=== PATIENT | female | born 1970 | race Asian ===

== ENCOUNTER 2020-02-24 19:49 | Emergency (ER) | payer BC, OTHER ==
[2020-02-24 20:21] LABS: BASOPHILS % (AUTO) 0.5 %; EOSINOPHILS # (AUTO) 0.3 10^3/uL (0.0-0.7); EOSINOPHILS % (AUTO) 3.9 %; HGB - HEMOGLOBIN 13.1 g/dL (12.0-16.0); LYMPHOCYTES # (AUTO) 2.9 10^3/uL (1.5-3.5); LYMPHOCYTES % (AUTO) 35.3 %; MEAN CORPUSCULAR HGB CONC 33.5 g/dL (32.0-36.0); MEAN CORPUSCULAR VOLUME 89.7 fL (81.0-99.0); MEAN PLATELET VOLUME 9.6 fL (7.9-10.8); MONOCYTES # (AUTO) 0.6 10^3/uL (0.0-1.0); MONOCYTES % (AUTO) 7.4 %; NEUTROPHILS # (AUTO) 4.3 10^3/uL (1.5-6.6); NEUTROPHILS % (AUTO) 52.5 %; PLT - PLATELET COUNT 254 10^3/uL (130-450); RED BLOOD COUNT 4.36 10^6/uL (4.20-5.40); RED CELL DISTRIBUTION WIDTH 12.8 % (12.0-15.0); WHITE BLOOD COUNT 8.2 x10^3/uL (4.8-10.8)
[2020-02-24 20:34] LABS: ALBUMIN 4.4 g/dL (3.2-5.5); ALBUMIN/GLOBULIN RATIO 1.3 (1.0-2.2); BILIRUBIN,TOTAL 0.6 mg/dL (0.2-1.0); CALCIUM 9.4 mg/dL (8.5-10.3); CREATININE 0.6 mg/dL (0.4-1.0); TOTAL PROTEIN 7.9 g/dL (6.7-8.2)
--- NOTE | 2020-02-24 20:45 | XRAY Report ---
PROCEDURE: Chest 1 View X-Ray INDICATIONS: Chest pain TECHNIQUE: One view of the chest was acquired. COMPARISON: None FINDINGS: Surgical changes and devices: None. Lungs and pleura: No pleural effusions or pneumothorax. Lungs demonstrate coarse interstitial luisa ngs and mild hyperinflation. Mediastinum: Mediastinal contours appear normal. Heart size is normal. Bones and chest wall: No suspicious bony lesions. Overlying soft tissues appear unremarkable. IMPRESSION: Mild emphysema or asthma. Reviewed by: Hazel Guzman MD on 02/24/2020 8:44 PM PDT Approved by: Hazel Guzman MD on 02/24/2020 8:44 PM PDT Station ID: [id number]
--- NOTE | 2020-02-24 21:26 | ED Physician Documentation ---
PD HPI CHEST PAIN - Stated complaint Stated Complaint: CP LT SIDE - Chief complaint Chief Complaint: Cardiac - History obtained from History obtained from: Patient, Family - History of Present Illness Timing - onset: Enter time (1300), Today Timing - onset during: Light activity Timing - duration: Hours Timing - details: Abrupt onset, Still present Pain level max: 5 Pain level now: 5 Quality: Aching Location: Left chest Radiation: Left upper extremity Improved by: Other medication (ibuprofen) Worsened by: No: Exertion, Inspiration, Eating, Movement, Palpation, Position Associated symptoms: No: Shortness of air, Diaphoresis, Nausea, Vomiting, Feeling faint / dizzy, General Weakness, Palpitations, Cough Similar symptoms before: No diagnosis Recently seen: Not recently seen - Additional information Additional information: 49-year-old female letter to [employer] today when she developed some pain in the left chest that radiated down into her left arm. She states the pain is about a 5 out of 10 at its maximum and she does not have other symptoms she does not have diaphoresis she denies dyspnea she does not feel lightheaded or dizzy. She denies any modifying factors for the pain. She states that she has not noted any exertional component to this and she is unable to get this to be worse with deep breaths or palpation of the chest wall. She starts states this started about 1:00 in the afternoon and has persisted. She has had a similar incident about 2-1/2 weeks ago that lasted about 2 days. This resolved she has not had symptoms in between. She denies any family history of coronary disease. She lamas s have a family history of diabetes and hypertension.She has never had an issue with hypertension Review of Systems Constitutional: denies: Fever Eyes: denies: Decreased vision Ears: denies: Ear pain Nose: denies: Congestion Throat: denies: Sore throat Cardiac: reports: Chest pain / pressure. denies: Palpitations, Pedal edema, Calf pain Respiratory: denies: Dyspnea, Cough, Hemoptysis, Wheezing GI: denies: Abdominal Pain, Nausea, Vomiting, Constipation, Diarrhea : denies: Dysuria, Frequency Skin: denies: Rash Musculoskeletal: denies: Neck pain, Back pain, Extremity pain Neurologic: denies: Generalized weakness, Focal weakness, Numbness PD PAST MEDICAL HISTORY - Past Medical History Past Medical History: No - Past Surgical History Past Surgical History: No - Allergies Allergies/Adverse Reactions: Allergies Allergy/AdvReac Type Severity Reaction Status Date / Time codeine AdvReac Itching Verified 02/24/20 19:52 - Social History Does the pt smoke?: No Smoking Status: Never smoker Does the pt drink ETOH?: Yes ETOH Use: Wine Does the pt have substance abuse?: No - Immunizations Immunizations are current?: Yes - POLST Patient has POLST: No PD ED PE NORMAL - Vitals Vital signs reviewed: Yes (Hypertensive) - General General: Alert and oriented X 3, No acute distress, Well developed/nourished - HEENT HEENT: Atraumatic, PERRL, EOMI - Neck Neck: Supple, no meningeal sign, No bony TTP - Cardiac Cardiac: RRR, No murmur - Respiratory Respiratory: No respiratory distress, Clear bilaterally, Other (No chest wall tenderness) - Abdomen Abdomen: Soft, Non tender - Back Back: No CVA TTP, No spinal TTP - Derm Derm: Normal color, Warm and dry, No rash - Extremities Extremities: No deformity, No edema, No calf tenderness / cord - Neuro Neuro: Alert and oriented X 3, exchange architect 2-12 intact, No motor deficit, No sensory deficit, Normal speech Eye Opening: Spontaneous Motor: Obeys Commands Verbal: Oriented GCS Score: 15 - Psych Psych: Normal mood, Normal affect Results - Vitals Vitals: Vital Signs - 24 hr 02/24/20 02/24/20 02/24/20 19:52 21:03 22:55 Temperature 36.6 C 36.6 C 37.0 C Heart Rate 82 75 67 Respiratory 14 16 12 Rate Blood Pressure 171/85 H 175/89 H 140/85 H O2 Saturation 100 100 100 Oxygen O2 Source Room air - EKG (time done) 1950 Rate: Rate (enter#) (75) Ischemia: Normal ST segments Compare to prior EKG: Old EKG unavailable Computer interpretation: Agree with computer - Labs Labs: Laboratory Tests 02/24/20 02/24/20 02/24/20 20:16 20:16 20:16 WBC 8.2 RBC 4.36 Hgb 13.1 Hct 39.1 MCV 89.7 MCH 30.0 MCHC 33.5 RDW 12.8 Plt Count 254 MPV 9.6 Neut # (Auto) 4.3 Lymph # (Auto) 2.9 [place] # (Auto) 0.6 Eos # (Auto) 0.3 Baso # (Auto) 0.0 Absolute Nucleated RBC 0.00 Nucleated RBC % 0.0 Sodium 141 Potassium 3.5 Chloride 103 Carbon Dioxide 27 Anion Gap 11.0 BUN 21 H Creatinine 0.6 Estimated GFR (MDRD) 105 Glucose 129 H Calcium 9.4 Total Bilirubin 0.6 AST 21 ALT 21 Alkaline Phosphatase 73 Troponin I High Sens < 2.3 L Total Protein 7.9 Albumin 4.4 Globulin 3.5 Albumin/Globulin Ratio 1.3 Lipase 38 02/24/20 21:59 WBC RBC Hgb Hct MCV MCH MCHC RDW Plt Count MPV Neut # (Auto) Lymph # (Auto) [place] # (Auto) Eos # (Auto) Baso # (Auto) Absolute Nucleated RBC Nucleated RBC % Sodium Potassium Chloride Carbon Dioxide Anion Gap BUN Creatinine Estimated GFR (MDRD) Glucose Calcium Total Bilirubin AST ALT Alkaline Phosphatase Troponin I High Sens < 2.3 L Total Protein Albumin Globulin Albumin/Globulin Ratio Lipase - Rads (name of study) chest Radiology: Prelim report reviewed (Impression: Mild emphysema or asthma.), EMP read indepedently, See rad report PD MEDICAL DECISION MAKING - ED course Complexity details: reviewed results, re-evaluated patient, considered differential, d/w patient, d/w family ED course: 49-year-old female with left-sided chest pain radiating to the arm has no modifying factors for her pain. She has a 5 out of 10 pain and she had a similar episode 2 weeks ago with self resolution. She has no exertional component to the pain and diagnostic studies are otherwise unremarkable. This includes 2 troponins that are both less than 2.3. I was not able to elicit a history of asthma or emphysema in this patient and I was unable to find a clear reason for her pain. Note was made of the patient's blood pressure being elevated and I have asked her to follow-up with her primary care doctor for reevaluation of her blood pressure Departure - Departure Disposition: Home, Self Care Clinical Impression: Atypical chest pain Hypertension Qualifiers: Hypertension type: unspecified Qualified Code(s): I10 - Essential (primary) hypertension Condition: Stable Instructions: ED Chest Pain Atypical Unkn Cause, ED Hypertension Poss Follow-Up: Rodney Lerner DO [Provider Admit Priv/Credential] - Discharge Date/Time: 02/24/20 22:57
[2020-02-24 22:57] VITALS: BP 140/85
== END 2020-02-24 22:57 | disposition home or self-care (01) ==
LOC: ED 19:49
DX: R07.89 Other chest pain (principal); R03.0 Elevated blood-pressure reading, without diagnosis of hypertension
CPT/HCPCS: 36415; 71045; 80053; 83690; 84484; 85025; 93005; 99284

== ENCOUNTER 2022-03-05 14:45 | Emergency (ER) | payer BC, OTHER ==
[2022-03-05] MEDS ORDERED: LIDOCAINE VISCOUS 2% 15 ML UDC MM STA (15:16)
[2022-03-05] MEDS ORDERED: MAG HYDROX/AL HYDROX/SIMETH 30 ML UDC PO STA (15:16)
--- NOTE | 2022-03-05 15:18 | ED Physician Documentation ---
PD HPI ABD PAIN - Stated complaint Stated Complaint: STOMACH PAIN X 2 WKS - Chief complaint Chief Complaint: Abd Pain - History obtained from History obtained from: Patient - Additional information Additional information: She is had 2 weeks of migratory abdominal pain which seems to be focused in the left upper quadrant and is worse after eating. There is no associated nausea or changes in bowel movements. She has been using ibuprofen without relief. No history of abdominal surgeries nor colonoscopy. She does feel bloated with it. Other than ibuprofen, risk factors for gastritis include enjoying wine, caffeine and spicy food. Review of Systems Ten Systems: 10 systems reviewed and negative Constitutional: denies: Fever, Chills Cardiac: denies: Chest pain / pressure, Palpitations Respiratory: denies: Dyspnea, Cough PD PAST MEDICAL HISTORY - Past Surgical History Past Surgical History: No - Present Medications Home Medications: Ambulatory Orders Medication Instructions Recorded Confirmed Omeprazole 40 mg PO DAILY #30 cap 03/05/22 - Allergies Allergies/Adverse Reactions: Allergies Allergy/AdvReac Type Severity Reaction Status Date / Time codeine AdvReac Itching Verified 03/05/22 15:01 - Social History Does the pt smoke?: No Smoking Status: Never smoker Does the pt drink ETOH?: Yes Does the pt have substance abuse?: No - Immunizations Immunizations are current?: Yes - POLST Patient has POLST: No PD ED PE NORMAL - Vitals Vital signs reviewed: Yes - General General: Alert and oriented X 3, No acute distress - Cardiac Cardiac: RRR, No murmur - Respiratory Respiratory: No respiratory distress, Clear bilaterally - Abdomen Abdomen: Normal bowel sounds, Soft, Non tender - Back Back: No CVA TTP, No spinal TTP - Derm Derm: Normal color, Warm and dry - Extremities Extremities: No edema, No calf tenderness / cord - Neuro Neuro: Alert and oriented X 3, Normal speech Results - Vitals Vitals: Vital Signs - 24 hr 03/05/22 14:59 Temperature 36.8 C Heart Rate 62 Respiratory 14 Rate Blood Pressure 155/82 H O2 Saturation 100 Oxygen O2 Source Room air - EKG (time done) 1525 Rate: Rate (enter#) (64) Rhythm: NSR [place]: Normal Intervals: Normal TN QRS: Normal Ischemia: Normal ST segments - Labs Labs: Laboratory Tests 03/05/22 03/05/22 15:29 15:29 WBC 9.2 RBC 4.61 Hgb 13.4 Hct 40.8 MCV 88.5 MCH 29.1 MCHC 32.8 RDW 12.4 Plt Count 252 MPV 9.8 Neut # (Auto) 5.8 Lymph # (Auto) 2.6 Will # (Auto) 0.5 Eos # (Auto) 0.2 Baso # (Auto) 0.1 Absolute Nucleated RBC 0.00 Nucleated RBC % 0.0 Sodium 139 Potassium 4.1 Chloride 104 Carbon Dioxide 27 Anion Gap 8.0 BUN 20 Creatinine 0.6 Estimated GFR (MDRD) 105 Glucose 136 H Calcium 9.4 Total Bilirubin < 0.2 L AST 36 ALT 43 Alkaline Phosphatase 79 Total Protein 8.2 Albumin 4.7 Globulin 3.5 Albumin/Globulin Ratio 1.3 Lipase 41 PD MEDICAL DECISION MAKING - ED course ED course: 51-year-old woman with migratory abdominal pains worse after eating with multiple risk factors for gastritis including NSAID use, modest alcohol use, spicy food. She does not smoke, quit a few years ago. Very benign exam and diagnostics including lab work and a CT of the abdomen pelvis were negative. She was feeling better after GI cocktail. Departure - Departure Disposition: 01 Home, Self Care Clinical Impression: Gastritis Qualifiers: Gastritis type: unspecified gastritis Chronicity: acute Gastritis bleeding: without bleeding Qualified Code(s): K29.00 - Acute gastritis without bleeding Condition: Good Record reviewed to determine appropriate education?: Yes Instructions: ED PUD Vs Gastritis Follow-Up: [facility] [Provider Group] Marceal Peña ARNP [Provider Admit Priv/Credential] - Prescriptions: Omeprazole 40 mg PO DAILY #30 cap Comments: As discussed, your response to the GI cocktail and lack of other positive findings on diagnostics including labs and CT suspect that you have gastritis or possibly an ulcer. We are giving you medications that work for both, if you have persistent symptoms follow-up with your primary care physician for consideration for referral for upper endoscopy.
[2022-03-05] MEDS ORDERED: iohexoL-300 100 ML VIAL ONE (15:19)
[2022-03-05 15:32] LABS: BASOPHILS # (AUTO) 0.1 10^3/uL (0.0-0.1); BASOPHILS % (AUTO) 0.5 %; EOSINOPHILS # (AUTO) 0.2 10^3/uL (0.0-0.7); EOSINOPHILS % (AUTO) 2.6 %; HCT - HEMATOCRIT 40.8 % (37.0-47.0); HGB - HEMOGLOBIN 13.4 g/dL (12.0-16.0); LYMPHOCYTES # (AUTO) 2.6 10^3/uL (1.5-3.5); LYMPHOCYTES % (AUTO) 28.2 %; MEAN CORPUSCULAR HEMOGLOBIN 29.1 pg (27.0-31.0); MEAN CORPUSCULAR HGB CONC 32.8 g/dL (32.0-36.0); MEAN CORPUSCULAR VOLUME 88.5 fL (81.0-99.0); MEAN PLATELET VOLUME 9.8 fL (7.9-10.8); MONOCYTES # (AUTO) 0.5 10^3/uL (0.0-1.0); MONOCYTES % (AUTO) 5.3 %; NEUTROPHILS # (AUTO) 5.8 10^3/uL (1.5-6.6); NEUTROPHILS % (AUTO) 63.2 %; PLT - PLATELET COUNT 252 10^3/uL (130-450); RED BLOOD COUNT 4.61 10^6/uL (4.20-5.40); RED CELL DISTRIBUTION WIDTH 12.4 % (12.0-15.0); WHITE BLOOD COUNT 9.2 x10^3/uL (4.8-10.8)
[2022-03-05 15:46] LABS: ALBUMIN 4.7 g/dL (3.2-5.5); ALBUMIN/GLOBULIN RATIO 1.3 (1.0-2.2); ALKALINE PHOSPHATASE 79 IU/L (42-121); ALT ALANINE AMINOTRANSFERASE 43 IU/L (10-60); AST ASPARTATE AMINOTRANSFERASE 36 IU/L (10-42); BILIRUBIN,TOTAL < 0.2 mg/dL (0.2-1.0); BUN - BLOOD UREA NITROGEN 20 mg/dL (6-20); CALCIUM 9.4 mg/dL (8.5-10.3); CARBON DIOXIDE - CO2 27 mmol/L (21-32); CHLORIDE 104 mmol/L (101-111); CREATININE 0.6 mg/dL (0.4-1.0); GFR - MDRD 105 (>89); GLUCOSE 136 mg/dL (70-100); LIPASE 41 U/L (22-51); POTASSIUM 4.1 mmol/L (3.5-5.0); SODIUM 139 mmol/L (135-145); TOTAL PROTEIN 8.2 g/dL (6.7-8.2)
--- NOTE | 2022-03-05 16:34 | CT Report ---
PROCEDURE: ABDOMEN/PELVIS W INDICATIONS: IV only, abd pain CONTRAST: 100ml contrast TECHNIQUE: After the administration of IV contrast, 5 mm thick sections acquired from the diaphragms to the symp hysis. 5 mm thick coronal and sagittal reformats were acquired. For radiation dose reduction, the f ollowing was used: automated exposure control, adjustment of mA and/or kV according to patient size. COMPARISON: None. FINDINGS: Image quality: Excellent. ABDOMEN: Lung bases: Lung bases are clear. Small cyst at the left lower lobe. No pleural effusion. Heart size is normal. Solid organs: Liver and spleen are normal in size and enhancement. No focal lesion. Gallbladder is unremarkable. Biliary system is within normal limits. Pancreas enhances normally. No adrenal nodule s. Kidneys demonstrate normal size and enhancement, without hydronephrosis. Peritoneum and bowel: Bowel loops demonstrate normal wall thickness and caliber. No free fluid or a ir. Nodes and vessels: No retroperitoneal or mesenteric adenopathy by size criteria. Aorta and inferior vena cava are normal in size. Miscellaneous: No ventral hernias. PELVIS: Genitourinary: Bladder wall thickness is normal. Anteverted uterus. No free fluid. Miscellaneous: No inguinal hernias or adenopathy. Bones: No suspicious bony lesions. Mild scoliosis. No vertebral body compression fractures. IMPRESSION: No acute abnormality identified. No free fluid. Reviewed by: Jim Welch MD on 03/05/2022 3:33 PM VALERIE Approved by: Jim Welch MD on 03/05/2022 3:33 PM VALERIE Station ID: [id number]
[2022-03-05] MEDS ORDERED: PANTOPRAZOLE 40 MG VIAL IVP STA (17:03)
[2022-03-05 17:22] VITALS: BP 160/86
[2022-03-05] MEDS ORDERED: iohexoL-300 100 ML VIAL IVP ONE (17:37)
== END 2022-03-05 17:22 | disposition home or self-care (01) ==
LOC: ED 14:45
DX: K29.00 Acute gastritis without bleeding (principal)
CPT/HCPCS: 36415; 74177; 80053; 83690; 85025; 93005; 96374; 99283; 99284; A9270; Q9967

== ENCOUNTER 2022-10-28 15:48 | Outpatient (CLI) | payer BC, OTHER ==
--- NOTE | 2022-10-28 16:46 | Ultrasound Report ---
PROCEDURE: Ext Limited Non Vascular INDICATIONS: FOOT NEUROMA TECHNIQUE: Real-time scanning was performed of the right foot, with image documentation. COMPARISON: None. FINDINGS: Focused ultrasound examination and plantar aspect of right midfoot at patient's reported a phong of palpable lump shows a 1.1 x 0.2 x 1.2 cm hypoechoic structure within plantar soft tissue and s how no internal vascularity. IMPRESSION: Solid appearing hypoechoic structure and plantar midfoot soft tissue as described above which could represent a small neuroma versus fibroma. Reviewed by: Art Hernandez MD on 10/28/2022 4:45 PM PDT Approved by: Art Hernandez MD on 10/28/2022 4:45 PM PDT Station ID: [id number]
== END 2022-10-28 15:49 | disposition home or self-care (01) ==
LOC: DI 15:48
PROVIDERS: ATTEND Physician Assistant
DX: D36.13 Benign neoplasm of peripheral nerves and autonomic nervous system of lower limb, including hip (principal)

== ENCOUNTER 2023-04-22 14:03 | Emergency (ER) | payer BC, OTHER ==
--- NOTE | 2023-04-22 14:25 | ED Physician Documentation ---
PD HPI CHEST PAIN - Stated complaint Stated Complaint: CHEST PX,SOA - Chief complaint Chief Complaint: Cardiac - History obtained from History obtained from: Patient, Family - History of Present Illness Timing - onset: Today Timing - onset during: Rest Timing - duration: Hours Timing - details: Abrupt onset, Still present Quality: Pressure, Sharp, Pain Location: Left chest Radiation: Other (across upper chest) Improved by: Rest Worsened by: No: Exertion, Inspiration, Eating, Movement, Palpation, Position Associated symptoms: Feeling faint / dizzy. No: Shortness of air, Diaphoresis, Nausea, Vomiting, General Weakness, Palpitations, Cough Similar symptoms before: No diagnosis (atypical chest pain with negative work up 3 years ago.) Recently seen: Not recently seen - Additional information Additional information: Shanti Vergara is a 52-year-old female who presents to the emergency department today with concerns of chest pain. She indicates that she awoke with this pain in the left side of her chest and points above her left breast and indicates that the pain radiates down to the lateral aspect of the left breast. She denies any shortness of breath lightheadedness or dizziness. She has had similar symptoms previously and I personally have evaluated her for this. At th at time she had atypical chest pain and we did not discover a specific reason for it. She denies any exertional component to it she denies any modifying factors she cannot make this better she cannot make it worse. She has not tried any medications. She states that she is anxious regarding the chest pain. Her indicates that they have family from both sides staying for the holidays and there is significant stress in the home. The patient does not feel stressed by this. Review of Systems Constitutional: denies: Fever Eyes: denies: Decreased vision Ears: denies: Ear pain Nose: denies: Rhinorrhea / runny nose, Congestion Throat: denies: Sore throat Cardiac: reports: Chest pain / pressure. denies: Palpitations, Pedal edema, Calf pain Respiratory: denies: Dyspnea, Cough GI: denies: Abdominal Pain, Nausea, Vomiting, Constipation, Diarrhea : reports: Frequency (always and forever). denies: Dysuria Skin: denies: Rash Musculoskeletal: denies: Neck pain, Back pain, Extremity pain PD PAST MEDICAL HISTORY - Past Medical History Past Medical History: No - Past Surgical History Past Surgical History: No - Present Medications Home Medications: Ambulatory Orders Medication Instructions Recorded Confirmed Omeprazole 40 mg PO DAILY #30 cap 03/05/22 - Allergies Allergies/Adverse Reactions: Allergies Allergy/AdvReac Type Severity Reaction Status Date / Time codeine AdvReac Itching Verified 03/05/22 15:01 - Social History Does the pt smoke?: No Smoking Status: Never smoker Does the pt drink ETOH?: Yes Does the pt have substance abuse?: Yes Substance Use and Type: CBD oil / Products - Immunizations Immunizations are current?: Yes - POLST Patient has POLST: No PD ED PE NORMAL - Vitals Vital signs reviewed: Yes (hypertensive ) - General General: Alert and oriented X 3, No acute distress, Well developed/nourished - HEENT HEENT: Atraumatic, PERRL, EOMI - Neck Neck: Supple, no meningeal sign, No bony TTP - Cardiac Cardiac: RRR, No murmur - Respiratory Respiratory: No respiratory distress, Clear bilaterally, Other (no chest wall tederness over area of pain (above left breast and radiating from medial to lateral)) - Abdomen Abdomen: Soft, Non tender - Back Back: No CVA TTP, No spinal TTP - Derm Derm: Normal color, Warm and dry, No rash - Extremities Extremities: No deformity, No edema - Neuro Neuro: Alert and oriented X 3, global human resources director 2-12 intact, No motor deficit, No sensory deficit, Normal speech Eye Opening: Spontaneous Motor: Obeys Commands Verbal: Oriented GCS Score: 15 - Psych Psych: Normal mood, Normal affect Results - Vitals Vitals: Vital Signs - 24 hr 04/22/23 04/22/23 04/22/23 14:05 14:09 14:58 Temperature 35.8 C L 36.5 C Heart Rate 67 67 63 Respiratory 16 16 16 Rate Blood Pressure 159/87 H 159/87 H 145/93 H O2 Saturation 100 100 99 04/22/23 04/22/23 15:09 15:58 Temperature Heart Rate 60 62 Respiratory 18 15 Rate Blood Pressure 151/82 H 154/83 H O2 Saturation 98 97 Oxygen O2 Source Room air - EKG (time done) 1411 EKG releavant findings:: EKG personally interpreted by author of this note. Relevant findings are: Rate: Rate (enter#) (69) Rhythm: NSR Ischemia: Normal ST segments Compare to prior EKG: Unchanged from prior EKG (SPT 03-05-2022 no changes ) Computer interpretation: Agree with computer - Labs Labs: Laboratory Tests 04/22/23 04/22/23 14:42 14:42 WBC 7.5 RBC 4.60 Hgb 13.4 Hct 40.2 MCV 87.4 MCH 29.1 MCHC 33.3 RDW 12.8 Plt Count 253 MPV 9.5 Neut # (Auto) 5.0 Lymph # (Auto) 1.9 [place] # (Auto) 0.4 Eos # (Auto) 0.2 Baso # (Auto) 0.0 Absolute Nucleated RBC 0.00 Nucleated RBC % 0.0 Sodium 140 Potassium 3.9 Chloride 107 Carbon Dioxide 27 Anion Gap 6.0 BUN 14 Creatinine 0.6 Estimated GFR (MDRD) 104 Glucose 138 H Calcium 9.5 Total Bilirubin 0.3 AST 15 ALT 22 Alkaline Phosphatase 74 Troponin I High Sens 2.3 Total Protein 7.3 Albumin 4.4 Globulin 2.9 Albumin/Globulin Ratio 1.5 Lipase 28 - Rads (name of study) chest Relevant Findings:: Prelim report reviewed (Impression: No acute cardiopulmonary process.), EMP independent interpretation of test, See rad report PD Medical Decision Making - ED course Complexity details: reviewed old records, reviewed results, re-evaluated patient, considered differential, d/w patient, d/w family Reviewed Lab Results: We reviewed a complete blood count showing a normal white blood cell count normal hemoglobin hematocrit and platelets and normal indices.We reviewed chemistries which showed normal electrolytes normal kidney and liver function and a high-sensitivity troponin was normal at 2.3.These laboratory values appear benign and do not contribute to a specific diagnosis.She has had this chest pain for more than 8 hours and has a negative troponin making an acute coronary syndrome unlikely. ED course: 52 y/o female with atypical chest pain without specific cause is evaluated with EKG, CXR, trop and blood work without specific findings. Departure - Departure Disposition: 01 Home, Self Care Clinical Impression: Atypical chest pain, Stress reaction Condition: Stable Instructions: ED Stress React, ED Chest Pain Atypical Unkn Cause Follow-Up: [facility] [Provider Group] Comments: Shanti, today we evaluated your chest pain with an electrocardiogram, chest x-ray and blood work. All of these studies indicate that your heart is functioning properly and does not have any evidence of damage. A follow up with your primary care doctor is indicated for persistence of symptoms. Discharge Date/Time: 04/22/23 16:00
[2023-04-22 14:47] LABS: BASOPHILS % (AUTO) 0.4 %; EOSINOPHILS # (AUTO) 0.2 10^3/uL (0.0-0.7); EOSINOPHILS % (AUTO) 2.5 %; HCT - HEMATOCRIT 40.2 % (37.0-47.0); HGB - HEMOGLOBIN 13.4 g/dL (12.0-16.0); LYMPHOCYTES # (AUTO) 1.9 10^3/uL (1.5-3.5); LYMPHOCYTES % (AUTO) 25.3 %; MEAN CORPUSCULAR HEMOGLOBIN 29.1 pg (27.0-31.0); MEAN CORPUSCULAR HGB CONC 33.3 g/dL (32.0-36.0); MEAN CORPUSCULAR VOLUME 87.4 fL (81.0-99.0); MEAN PLATELET VOLUME 9.5 fL (7.9-10.8); MONOCYTES # (AUTO) 0.4 10^3/uL (0.0-1.0); MONOCYTES % (AUTO) 5.7 %; PLT - PLATELET COUNT 253 10^3/uL (130-450); RED CELL DISTRIBUTION WIDTH 12.8 % (12.0-15.0); WHITE BLOOD COUNT 7.5 x10^3/uL (4.8-10.8)
--- NOTE | 2023-04-22 15:16 | XRAY Report ---
PROCEDURE: Chest 1 View X-Ray INDICATIONS: chest pain TECHNIQUE: One view of the chest was acquired. COMPARISON: CXR 02/24/2020. FINDINGS: Surgical changes and devices: None. Lungs and pleura: No pleural effusions or pneumothorax. Lungs are clear. Mediastinum: Mediastinal contours appear normal. Heart size is normal. Bones and chest wall: No suspicious bony lesions. Overlying soft tissues appear unremarkable. IMPRESSION: No acute cardiopulmonary process. Reviewed by: Jim Welch MD on 04/22/2023 3:14 PM PST Approved by: Jim Welch MD on 04/22/2023 3:14 PM PST Station ID: [id number]
[2023-04-22 15:18] LABS: ALBUMIN 4.4 g/dL (3.2-5.5); ALBUMIN/GLOBULIN RATIO 1.5 (1.0-2.2); BILIRUBIN,TOTAL 0.3 mg/dL (0.2-1.0); CALCIUM 9.5 mg/dL (8.5-10.3); CREATININE 0.6 mg/dL (0.6-1.3); POTASSIUM 3.9 mmol/L (3.5-4.5); TOTAL PROTEIN 7.3 g/dL (6.4-8.9)
[2023-04-22 15:19] LABS: TROPONIN I HIGH SENSITIVITY 2.3 ng/L (2.3-14.8)
[2023-04-22 16:08] VITALS: BP 154/83; O2SAT 97
== END 2023-04-22 16:00 | disposition home or self-care (01) ==
LOC: ED 14:03
DX: R07.89 Other chest pain (principal); F43.89 Other reactions to severe stress
CPT/HCPCS: 36415; 80053; 83690; 84484; 85025; 85379; 93005; 99283; 99284

== ENCOUNTER 2023-07-01 12:07 | Emergency (ER) | payer BC, OTHER ==
[2023-07-01 12:24] VITALS: BP 160/86; O2SAT 99
--- NOTE | 2023-07-01 12:24 | ED Physician Documentation ---
PD HPI URI - Stated complaint Stated Complaint: COUGH - Chief complaint Chief Complaint: Resp - History obtained from History obtained from: Patient - Additional information Additional information: She has been sick for 3 weeks with cough, minimally productive and especially bad at night such that she has some reactive lower abdominal pain when she coughs and has a lot of sinus pressure and drainage as well. Denies fever. No shortness of breath. PD PAST MEDICAL HISTORY - Past Medical History Past Medical History: No - Past Surgical History Past Surgical History: No - Present Medications Home Medications: Ambulatory Orders Medication Instructions Recorded Confirmed Omeprazole 40 mg PO DAILY #30 cap 03/05/22 Albuterol Sulf [Ventolin Hfa 1 - 2 puffs INH Q4HR PRN #1 each 07/01/23 Inhaler] Amox/Clav 875/125 [Augmentin] 1 each PO Q12H #20 tablet 07/01/23 Benzonatate [Tessalon] 200 mg PO TID PRN #20 cap 07/01/23 - Allergies Allergies/Adverse Reactions: Allergies Allergy/AdvReac Type Severity Reaction Status Date / Time codeine AdvReac Itching Verified 07/01/23 12:16 - Social History Does the pt smoke?: No Smoking Status: Never smoker Does the pt drink ETOH?: Yes Does the pt have substance abuse?: Yes - Immunizations Immunizations are current?: Yes - POLST Patient has POLST: No PD ED PE NORMAL - Vitals Vital signs reviewed: Yes - General General: Alert and oriented X 3, No acute distress - HEENT HEENT: Other (TMs are normal. She is tender to both maxillary sinuses with swollen nasal mucosa. Oropharynx is normal.) - Neck Neck: Supple, no meningeal sign, No bony TTP - Cardiac Cardiac: RRR, No murmur - Respiratory Respiratory: No respiratory distress, Clear bilaterally - Abdomen Abdomen: Non tender - Neuro Neuro: Alert and oriented X 3, Normal speech Results - Vitals Vitals: Vital Signs - 24 hr 07/01/23 12:16 Temperature 36.8 C Heart Rate 80 Respiratory 16 Rate Blood Pressure 160/86 H O2 Saturation 99 Oxygen O2 Source Room air PD Medical Decision Making - ED course ED course: Seems like the source of the problem is actually a sinus infection. Her lungs are clear and she has no shortness of breath. Given the time course seems reasonable to trial some antibiotics. Departure - Departure Disposition: 01 Home, Self Care Clinical Impression: Sinusitis Qualifiers: Sinusitis location: maxillary Chronicity: acute Recurrence: non-recurrent Qualified Code(s): J01.00 - Acute maxillary sinusitis, unspecified Condition: Good Record reviewed to determine appropriate education?: Yes Instructions: ED Sinusitis Abx Tx Prescriptions: Albuterol Sulf [Ventolin Hfa Inhaler] 1 - 2 puffs INH Q4HR PRN #1 each PRN Reason: Shortness Of Air/Wheezing Amox/Clav 875/125 [Augmentin] 1 each PO Q12H #20 tablet Benzonatate [Tessalon] 200 mg PO TID PRN #20 cap PRN Reason: Cough Comments: I sent your prescription electronically to the [facility] in [place]. As discussed I think you are cough is related to a sinus infection especially since it is worse at night. Follow-up with your doctor in a week for recheck, return for new or worsening symptoms. Forms: PCP List
== END 2023-07-01 12:35 | disposition home or self-care (01) ==
LOC: ED 12:07
DX: J01.00 Acute maxillary sinusitis, unspecified (principal)
CPT/HCPCS: 99283

== ENCOUNTER 2023-08-23 18:45 | Emergency (ER) | payer BC, OTHER ==
--- NOTE | 2023-08-23 18:59 | ED Physician Documentation ---
PD HPI CHEST PAIN - Stated complaint Stated Complaint: CHEST PX/DIZZY - Chief complaint Chief Complaint: Cardiac - History obtained from History obtained from: Patient - Additional information Additional information: Otherwise healthy 52-year-old woman presents for evaluation of chest pain and headache. She states that she has had a dull ache in her left upper chest that is nonradiating nonexertional and does not have any other changes for last 3 days but worse today. Associated with a mild global headache. She feels out of it. She denies pedal edema, calf pain, shortness of breath, recent travel. No personal family history of heart problems. She tried naproxen at home without relief. PD PAST MEDICAL HISTORY - Past Medical History Past Medical History: No - Past Surgical History Past Surgical History: No - Present Medications Home Medications: Ambulatory Orders Medication Instructions Recorded Confirmed Omeprazole 40 mg PO DAILY #30 cap 03/05/22 Albuterol Sulf [Ventolin Hfa 1 - 2 puffs INH Q4HR PRN #1 each 07/01/23 Inhaler] Amox/Clav 875/125 [Augmentin] 1 each PO Q12H #20 tablet 07/01/23 Benzonatate [Tessalon] 200 mg PO TID PRN #20 cap 07/01/23 - Allergies Allergies/Adverse Reactions: Allergies Allergy/AdvReac Type Severity Reaction Status Date / Time codeine AdvReac Itching Verified 08/23/23 18:47 - Social History Does the pt smoke?: No Smoking Status: Never smoker Does the pt drink ETOH?: Yes Does the pt have substance abuse?: Yes - Immunizations Immunizations are current?: Yes - POLST Patient has POLST: No PD ED PE NORMAL - Vitals Vital signs reviewed: Yes - General General: Alert and oriented X 3, No acute distress - HEENT HEENT: PERRL, EOMI - Neck Neck: Supple, no meningeal sign, No bony TTP - Cardiac Cardiac: RRR, No murmur - Respiratory Respiratory: No respiratory distress, Clear bilaterally - Abdomen Abdomen: Non tender - Extremities Extremities: No edema, No calf tenderness / cord - Neuro Neuro: Alert and oriented X 3, No motor deficit, No sensory deficit, Normal speech Eye Opening: Spontaneous Motor: Obeys Commands Verbal: Oriented GCS Score: 15 - Psych Psych: Normal mood, Normal affect Results - Vitals Vitals: Vital Signs - 24 hr 08/23/23 08/23/23 08/23/23 18:47 18:51 20:02 Temperature 36.8 C Heart Rate 66 63 62 Respiratory 16 16 Rate Blood Pressure 180/80 H 133/87 H O2 Saturation 100 98 Oxygen O2 Source Room air - EKG (time done) 1847 EKG releavant findings:: EKG personally interpreted by author of this note. Relevant findings are: Rate: Rate (enter#) (129) Rhythm: Sinus tachycardia (Computer reading it as sinus tachycardia. It is exquisitely regular so I do wonder if it is that versus atrial flutter.) [place]: Normal Intervals: Prolonged MD, RBBB Ischemia: Normal ST segments - Labs Labs: Laboratory Tests 08/23/23 08/23/23 19:20 19:20 WBC 8.0 RBC 4.75 Hgb 13.9 Hct 41.6 MCV 87.6 MCH 29.3 MCHC 33.4 RDW 12.8 Plt Count 262 MPV 9.2 Neut # (Auto) 4.4 Lymph # (Auto) 2.8 [place] # (Auto) 0.5 Eos # (Auto) 0.3 Baso # (Auto) 0.1 Absolute Nucleated RBC 0.00 Nucleated RBC % 0.0 Sodium 137 Potassium 3.8 Chloride 103 Carbon Dioxide 27 Anion Gap 7.0 BUN 14 Creatinine 0.5 L Estimated GFR (MDRD) 129 Glucose 106 H Calcium 10.2 Total Bilirubin 0.4 AST 32 ALT 42 Alkaline Phosphatase 94 Troponin I High Sens 2.5 Total Protein 7.9 Albumin 4.6 Globulin 3.3 Albumin/Globulin Ratio 1.4 Lipase 36 - Rads (name of study) 1v cxr Relevant Findings:: Final report received, EMP independent interpretation of test PD Medical Decision Making - ED course ED course: Heart score 1, PERC negative After the administration of Reglan and Toradol her headache was much better. She was somewhat hypertensive here, but this got better without specific intervention. She actually has PCP follow-up tomorrow conveniently. Departure - Departure Disposition: 01 Home, Self Care Clinical Impression: Atypical chest pain Condition: Good Record reviewed to determine appropriate education?: Yes Instructions: ED Chest Pain Atypical Unkn Cause Comments: Testing would suggest that the pain is not from your heart. That said call your doctor to arrange a follow-up appointment, make the next available appointment. In the interim, return anytime if worse or if new symptoms develop. Forms: PCP List Discharge Date/Time: 08/23/23 20:02
[2023-08-23 19:24] LABS: BASOPHILS # (AUTO) 0.1 10^3/uL (0.0-0.1); BASOPHILS % (AUTO) 0.7 %; EOSINOPHILS # (AUTO) 0.3 10^3/uL (0.0-0.7); EOSINOPHILS % (AUTO) 3.1 %; HCT - HEMATOCRIT 41.6 % (37.0-47.0); HGB - HEMOGLOBIN 13.9 g/dL (12.0-16.0); LYMPHOCYTES # (AUTO) 2.8 10^3/uL (1.5-3.5); MEAN CORPUSCULAR HEMOGLOBIN 29.3 pg (27.0-31.0); MEAN CORPUSCULAR HGB CONC 33.4 g/dL (32.0-36.0); MEAN CORPUSCULAR VOLUME 87.6 fL (81.0-99.0); MEAN PLATELET VOLUME 9.2 fL (7.9-10.8); MONOCYTES # (AUTO) 0.5 10^3/uL (0.0-1.0); MONOCYTES % (AUTO) 5.6 %; NEUTROPHILS # (AUTO) 4.4 10^3/uL (1.5-6.6); NEUTROPHILS % (AUTO) 55.2 %; PLT - PLATELET COUNT 262 10^3/uL (130-450); RED BLOOD COUNT 4.75 10^6/uL (4.20-5.40); RED CELL DISTRIBUTION WIDTH 12.8 % (12.0-15.0)
[2023-08-23] MEDS: METOCLOPRAMIDE 10 MG/2 ML VIAL IVP STA (19:31)
[2023-08-23] MEDS: KETOROLAC 15 MG/ML VIAL IVP STA (19:32)
--- NOTE | 2023-08-23 19:36 | XRAY Report ---
PROCEDURE: Chest 1V INDICATIONS: cp TECHNIQUE: One view of the chest was acquired. COMPARISON: 04/22/2023 FINDINGS: Surgical changes and devices: None. Lungs and pleura: No pleural effusions or pneumothorax. Lungs are clear. Mediastinum: Mediastinal contours appear normal. Heart size is normal. Bones and chest wall: No suspicious bony lesions. Overlying soft tissues appear unremarkable. IMPRESSION: No acute cardiopulmonary process. No focal consolidation. Reviewed by: Broderick Mirza MD on 08/23/2023 7:35 PM PDT Approved by: Broderick Mirza MD on 08/23/2023 7:35 PM PDT Station ID: [id number]
[2023-08-23 19:44] LABS: ALBUMIN 4.6 g/dL (3.2-5.5); ALBUMIN/GLOBULIN RATIO 1.4 (1.0-2.2); BILIRUBIN,TOTAL 0.4 mg/dL (0.2-1.0); CALCIUM 10.2 mg/dL (8.5-10.3); CREATININE 0.5 mg/dL (0.6-1.3); POTASSIUM 3.8 mmol/L (3.5-4.5); TOTAL PROTEIN 7.9 g/dL (6.4-8.9); TROPONIN I HIGH SENSITIVITY 2.5 ng/L (2.3-14.8)
[2023-08-23 20:10] VITALS: BP 133/87; O2SAT 98
== END 2023-08-23 20:02 | disposition home or self-care (01) ==
LOC: ED 18:45
DX: R07.89 Other chest pain (principal); R51.9 Headache, unspecified
CPT/HCPCS: 36415; 71045; 80053; 83690; 84484; 85025; 93005; 96374; 99284; J2765

== ENCOUNTER 2023-08-31 11:23 | Emergency (ER) | payer BC, OTHER ==
[2023-08-31 11:57] VITALS: O2SAT 100
--- NOTE | 2023-08-31 12:05 | ED Physician Documentation ---
PD HPI CHEST PAIN - Stated complaint Stated Complaint: CP/LIGHT HEADED - Chief complaint Chief Complaint: Cardiac - History obtained from History obtained from: Patient - History of Present Illness Timing - onset: How many weeks ago (1) Pain level max: 5 Pain level now: 5 Quality: Sharp Location: Substernal Radiation: No: Jaw, Neck, Back, Abdominal, Left upper extremity, Right upper extremity Improved by: Nothing Worsened by: No: Exertion, Inspiration, Eating, Movement, Palpation, Position Associated symptoms: Feeling faint / dizzy (states feels lightheaded). No: Shortness of air, Diaphoresis, Nausea, Vomiting Similar symptoms before: Diagnosis (atypical chest pain) Recently seen: Emergency Dept (last week for same) - Additional information Additional information: Patient is a 52-year-old female who presents to the emergency department stating that she has had sharp chest pain ongoing for the past 1 week. No abdominal pain, nausea or vomiting. Does not seem to change with movement, exertion, breathing, eating or drinking. Nothing seems to make it better or worse. She was seen here last week for same. States that the sharp pain has never gone away. Does not radiate. No recent travel. No recent surgery. Review of Systems Constitutional: denies: Fever, Chills Respiratory: denies: Cough GI: denies: Vomiting, Diarrhea Skin: denies: Rash Musculoskeletal: denies: Neck pain, Back pain Neurologic: denies: Headache PD PAST MEDICAL HISTORY - Past Medical History Past Medical History: Yes Cardiovascular: Hypertension - Past Surgical History Past Surgical History: Yes - Present Medications Home Medications: Ambulatory Orders Medication Instructions Recorded Confirmed Omeprazole 40 mg PO DAILY #30 cap 03/05/22 Albuterol Sulf [Ventolin Hfa 1 - 2 puffs INH Q4HR PRN #1 each 07/01/23 Inhaler] Amox/Clav 875/125 [Augmentin] 1 each PO Q12H #20 tablet 07/01/23 Benzonatate [Tessalon] 200 mg PO TID PRN #20 cap 07/01/23 Alprazolam [Xanax] 0.25 mg PO Q8H PRN #10 tablet 08/31/23 - Allergies Allergies/Adverse Reactions: Allergies Allergy/AdvReac Type Severity Reaction Status Date / Time codeine AdvReac Itching Verified 08/31/23 11:40 - Social History Does the pt smoke?: No Smoking Status: Never smoker Does the pt drink ETOH?: Yes Does the pt have substance abuse?: Yes - Immunizations Immunizations are current?: Yes - POLST Patient has POLST: No PD ED PE NORMAL - Vitals Vital signs reviewed: Yes - General General: Alert and oriented X 3, No acute distress - HEENT HEENT: PERRL, Moist mucous membranes - Neck Neck: Supple, no meningeal sign, No JVD, No bruit - Cardiac Cardiac: RRR, No murmur, Strong equal pulses - Respiratory Respiratory: No respiratory distress, Clear bilaterally - Abdomen Abdomen: Soft, Non tender, Non distended - Back Back: No CVA TTP, No spinal TTP - Derm Derm: Warm and dry - Extremities Extremities: No edema, No calf tenderness / cord - Neuro Neuro: Alert and oriented X 3, special education assistant 2-12 intact, No motor deficit, No sensory deficit, Normal speech - Psych Psych: Normal mood, Normal affect - Free text exam Free text exam: no chest wall tenderness. Results - Vitals Vitals: Vital Signs - 24 hr 08/31/23 08/31/23 08/31/23 11:37 13:40 14:37 Temperature 36.7 C Heart Rate 66 64 61 Respiratory 18 16 16 Rate Blood Pressure 145/73 H 143/79 H 130/81 H O2 Saturation 100 100 100 Oxygen O2 Source Room air - EKG (time done) 1145 EKG releavant findings:: EKG personally interpreted by author of this note. Relevant findings are: Rate: Rate (enter#) (63) Rhythm: NSR [place]: Normal Intervals: Normal [place] QRS: Normal Ischemia: Normal ST segments - Labs Labs: Laboratory Tests 08/31/23 08/31/23 12:00 12:00 WBC 8.0 RBC 4.85 Hgb 14.0 Hct 42.8 MCV 88.2 MCH 28.9 MCHC 32.7 RDW 12.7 Plt Count 277 MPV 9.7 Neut # (Auto) 5.3 Lymph # (Auto) 2.1 [place] # (Auto) 0.5 Eos # (Auto) 0.1 Baso # (Auto) 0.0 Absolute Nucleated RBC 0.00 Nucleated RBC % 0.0 Sodium 137 Potassium 3.8 Chloride 103 Carbon Dioxide 26 Anion Gap 8.0 BUN 14 Creatinine 0.6 Estimated GFR (MDRD) 104 Glucose 121 H Calcium 10.1 Total Bilirubin 0.4 AST 25 ALT 38 Alkaline Phosphatase 83 Troponin I High Sens 3.8 Total Protein 8.1 Albumin 4.9 Globulin 3.2 Albumin/Globulin Ratio 1.5 Lipase 22 - Rads (name of study) cxr Relevant Findings:: Final report received, See rad report CT angio chest Relevant Findings:: Final report received, See rad report PD Medical Decision Making - ED course Complexity details: reviewed results, re-evaluated patient, considered differential (No ST elevation OR, no aortic dissection, no PE, no tension pneumothorax, no aortic aneurysm), d/w patient ED course: Unclear etiology of the patient's symptoms. No acute findings on laboratory testing, EKG, chest x-ray. Given that this was her second visit a CT angiogram was performed to exclude pulmonary embolus given the sharp nature of her pain. This is also negative except for thyroid nodule. Patient appeared quite anxious. She was given a dose of Ativan and her chest pain and dizziness resolved. Will prescribe a small amount of Xanax as her symptoms may be related to anxiety. Patient counseled regarding signs and symptoms for which I believe and urgent re-evaluation would be necessary. Patient with good understanding of and agreement to plan and is comfortable going home at this time This document was made in part using voice recognition software. While efforts are made to proofread this document, sound alike and grammatical errors may occur. Departure - Departure Disposition: 01 Home, Self Care Clinical Impression: Atypical chest pain, Thyroid nodule Condition: Good Instructions: ED Chest Pain Atypical Unkn Cause Follow-Up: your,doctor in 1 week [Other] Prescriptions: Alprazolam [Xanax] 0.25 mg PO Q8H PRN #10 tablet PRN Reason: anxiety Comments: Your prescription was sent to [facility] in [place]. Please follow-up with your doctor for further care. Your chest x-ray, CT of your chest and laboratory testing is normal. Incidentally on the CT scan of your chest you do appear to have a left-sided thyroid nodule. This can be followed up with your primary care provider for further testing. PROCEDURE: Angio Chest INDICATIONS: chest pain, sharp CONTRAST: Omnipaque 300 80ml TECHNIQUE: After the administration of intravenous contrast, 2 mm axial images were acquired from the pulmonary apices to the posterior costophrenic angles during the arterial phase. In addition, 1 mm lung kernel and 5 mm soft tissue kernel reconstructions were performed. 3-dimensional coronal oblique maximum intensity projection (MIP) reformats, 8 mm axial MIP, and 5 mm coronal and sagittal MPR reformats were then performed through the thorax. For radiation dose reduction, the following was used: automated exposure control, adjustment of mA and/or kV according to patient size. COMPARISON: None. FINDINGS: Image quality: Excellent. Large vessels: No filling defects within the opacified pulmonary arteries, accounting for motion and contrast timing. No evidence of acute aortic syndrome or aortic aneurysm. Lungs and pleura: Mild dependent atelectasis in posterior aspect of bilateral lung higgins are seen. No consolidation. No pleural effusions. No pneumothorax. No suspicious pulmonary nodules which require follow up. Mediastinum: Heart size is mildly enlarged. No pericardial effusion. No large vessel abnormality. No mediastinal adenopathy by size criteria. Chest wall and lower neck: Enlarged left thyroid lobe with suggestion of heterogeneously enhancing left thyroid lobe nodule measures 1.8 x 1.3 cm in size series 4 image 71. No axillary or supraclavi cular adenopathy by size. Bones: No aggressive osseous abnormality. Upper Abdomen: Unremarkable. IMPRESSION: 1. No pulmonary embolus. No thoracic aortic aneurysm or dissection. 2. Dependent atelectasis in posterior aspect of bilateral lung higgins. No focal infiltrate, pleural effusion or pneumothorax. 3. Mild cardiomegaly, no pericardial effusion. No mediastinal or hilar lymphadenopathy by size criteria. 4. Asymmetrically enlarged left thyroid lobe with suggestion of left thyroid nodule. Elevation ultrasound of thyroid gland follow-up is recommended for further evaluation of this region. Forms: PCP List Discharge Date/Time: 08/31/23 14:39
[2023-08-31 12:06] LABS: BASOPHILS % (AUTO) 0.5 %; EOSINOPHILS # (AUTO) 0.1 10^3/uL (0.0-0.7); EOSINOPHILS % (AUTO) 1.7 %; HCT - HEMATOCRIT 42.8 % (37.0-47.0); LYMPHOCYTES # (AUTO) 2.1 10^3/uL (1.5-3.5); LYMPHOCYTES % (AUTO) 26.2 %; MEAN CORPUSCULAR HEMOGLOBIN 28.9 pg (27.0-31.0); MEAN CORPUSCULAR HGB CONC 32.7 g/dL (32.0-36.0); MEAN CORPUSCULAR VOLUME 88.2 fL (81.0-99.0); MEAN PLATELET VOLUME 9.7 fL (7.9-10.8); MONOCYTES # (AUTO) 0.5 10^3/uL (0.0-1.0); NEUTROPHILS # (AUTO) 5.3 10^3/uL (1.5-6.6); NEUTROPHILS % (AUTO) 65.4 %; PLT - PLATELET COUNT 277 10^3/uL (130-450); RED BLOOD COUNT 4.85 10^6/uL (4.20-5.40); RED CELL DISTRIBUTION WIDTH 12.7 % (12.0-15.0)
--- NOTE | 2023-08-31 12:15 | XRAY Report ---
PROCEDURE: Chest 1V INDICATIONS: Chest Pain TECHNIQUE: One view of the chest was acquired. COMPARISON: 08/23/2023. FINDINGS: Surgical changes and devices: None. Lungs and pleura: No pleural effusions or pneumothorax. Lungs are clear. Mediastinum: Mediastinal contours appear normal. Heart size is normal. Bones and chest wall: No suspicious bony lesions. Overlying soft tissues appear unremarkable. IMPRESSION: No acute cardiopulmonary process. Reviewed by: Meliza Wolf MD, PhD on 08/31/2023 12:13 PM PDT Approved by: Meliza Wolf MD, PhD on 08/31/2023 12:13 PM PDT Station ID: [id number]
[2023-08-31 12:26] LABS: TROPONIN I HIGH SENSITIVITY 3.8 ng/L (2.3-14.8)
[2023-08-31 12:27] LABS: ALBUMIN 4.9 g/dL (3.2-5.5); ALBUMIN/GLOBULIN RATIO 1.5 (1.0-2.2); BILIRUBIN,TOTAL 0.4 mg/dL (0.2-1.0); CALCIUM 10.1 mg/dL (8.5-10.3); CREATININE 0.6 mg/dL (0.6-1.3); POTASSIUM 3.8 mmol/L (3.5-4.5); TOTAL PROTEIN 8.1 g/dL (6.4-8.9)
[2023-08-31] MEDS ORDERED: iohexoL-300 100 ML VIAL ONE (12:53)
[2023-08-31] MEDS: iohexoL-300 100 ML VIAL IVP ONE (13:18)
[2023-08-31] MEDS: LORazepam 2 MG/ML VIAL IVP STA (13:35)
[2023-08-31] MEDS: MAG HYDROX/AL HYDROX/SIMETH 30 ML UDC PO STA (13:35)
[2023-08-31] MEDS: SUCRALFATE 1 GM/10 ML UDC PO STA (13:35)
--- NOTE | 2023-08-31 13:58 | CT Report ---
PROCEDURE: Angio Chest INDICATIONS: chest pain, sharp CONTRAST: Omnipaque 300 80ml TECHNIQUE: After the administration of intravenous contrast, 2 mm axial images were acquired from the pulmonary apices to the posterior costophrenic angles during the arterial phase. In addition, 1 mm lung kernel and 5 mm soft tissue kernel reconstructions were performed. 3-dimensional coronal oblique maximum int ensity projection (MIP) reformats, 8 mm axial MIP, and 5 mm coronal and sagittal MPR reformats were t hen performed through the thorax. For radiation dose reduction, the following was used: automated exp osure control, adjustment of mA and/or kV according to patient size. COMPARISON: None. FINDINGS: Image quality: Excellent. Large vessels: No filling defects within the opacified pulmonary arteries, accounting for motion and contrast timing. No evidence of acute aortic syndrome or aortic aneurysm. Lungs and pleura: Mild dependent atelectasis in posterior aspect of bilateral lung higgins are seen. N o consolidation. No pleural effusions. No pneumothorax. No suspicious pulmonary nodules which requir e follow up. Mediastinum: Heart size is mildly enlarged. No pericardial effusion. No large vessel abnormality. No mediastinal adenopathy by size criteria. Chest wall and lower neck: Enlarged left thyroid lobe with suggestion of heterogeneously enhancing le ft thyroid lobe nodule measures 1.8 x 1.3 cm in size series 4 image 71. No axillary or supraclavicula r adenopathy by size. Bones: No aggressive osseous abnormality. Upper Abdomen: Unremarkable. IMPRESSION: 1. No pulmonary embolus. No thoracic aortic aneurysm or dissection. 2. Dependent atelectasis in posterior aspect of bilateral lung higgins. No focal infiltrate, pleural e ffusion or pneumothorax. 3. Mild cardiomegaly, no pericardial effusion. No mediastinal or hilar lymphadenopathy by size criter ia. 4. Asymmetrically enlarged left thyroid lobe with suggestion of left thyroid nodule. Elevation ultras ound of thyroid gland follow-up is recommended for further evaluation of this region. Reviewed by: Art Hernandez MD on 08/31/2023 1:56 PM PDT Approved by: Art Hernandez MD on 08/31/2023 1:56 PM PDT Station ID: [id number]
[2023-08-31 14:40] VITALS: BP 130/81
== END 2023-08-31 14:39 | disposition home or self-care (01) ==
LOC: ED 11:23
DX: R07.89 Other chest pain (principal); E04.1 Nontoxic single thyroid nodule; R41.9 Unspecified symptoms and signs involving cognitive functions and awareness
CPT/HCPCS: 36415; 71045; 71275; 80053; 83690; 84484; 85025; 93005; 96374; 99284; A9270; J2060; Q9967